=== PATIENT | female | born 1980 | race Caucasian/White ===

== ENCOUNTER → 2016-09-21 | Outpatient (CLI) | payer BC | LOC: RAD 15:57 | DX: M54.2 Cervicalgia (principal) | CPT/HCPCS: 72050 ==

== ENCOUNTER → 2020-10-13 | Outpatient (CLI) | payer BC ==
[~2020-10-13] MED LIST: ZOLOFT50 MG PO
[2020-10-13 10:20] LABS: HEMOGLOBIN 13.3 gm/dl (12.3-15.3); RED BLOOD COUNT 4.63 M/UL (4.00-5.10); WHITE BLOOD COUNT 9.9 K/UL (4.5-11.0)
[2020-10-13 10:48] LABS: BUN/CREATININE RATIO 18 (0-10)
[2020-10-15 09:15] LABS: THYROXINE (T4) 11.3 ug/dL (4.5-12.0)
== END ==
LOC: LAB 09:51
PROVIDERS: Nurse Practitioner Family
DX: E78.5 Hyperlipidemia, unspecified (principal); R42 Dizziness and giddiness; R53.83 Other fatigue; E55.9 Vitamin D deficiency, unspecified
CPT/HCPCS: 36415; 80053; 80061; 84436; 84443; 84480; 85025

== ENCOUNTER → 2020-11-17 | Outpatient (CLI) | payer BC | LOC: LAB 12:57 | DX: E55.9 Vitamin D deficiency, unspecified (principal) | CPT/HCPCS: 36415 ==

== ENCOUNTER → 2021-05-23 | Outpatient (CLI) | payer BC | LOC: KOH-I 14:50 | DX: E04.2 Nontoxic multinodular goiter (principal) | CPT/HCPCS: 76536 ==

== ENCOUNTER → 2021-06-09 | Outpatient (CLI) | payer BC ==
[2021-06-09 17:37] LABS: HEMOGLOBIN 13.1 gm/dl (12.3-15.3); RED BLOOD COUNT 4.53 M/UL (4.00-5.10); WHITE BLOOD COUNT 9.7 K/UL (4.5-11.0)
[2021-06-09 17:56] LABS: BUN/CREATININE RATIO 13 (0-10)
== END ==
LOC: LAB 16:51
PROVIDERS: Internal Medicine Endocrinology, Diabetes & Metabolism
DX: E78.5 Hyperlipidemia, unspecified (principal); F41.9 Anxiety disorder, unspecified; E04.9 Nontoxic goiter, unspecified; E55.9 Vitamin D deficiency, unspecified; R53.83 Other fatigue; E04.2 Nontoxic multinodular goiter
CPT/HCPCS: 36415; 80048; 80061; 80076; 82607; 83036; 84439; 84443; 85025

== ENCOUNTER 2021-07-13 16:58 | Emergency (ER) | payer BC ==
[~2021-07-13] VITALS: Ht 165.1 cm; Wt 83.9 kg
== END 2021-07-14 03:30 | disposition home or self-care (01) ==
LOC: ER1 16:58
DX: U07.1 COVID-19 (principal); Z23 Encounter for immunization
CPT/HCPCS: 99283; M0243